=== PATIENT | female | born 1960 | race Caucasian/White ===

== ENCOUNTER 2017-08-12 12:41 | Inpatient (IN) | payer OTHER ==
[2017-08-12 13:57] VITALS: BMI 30.1
--- NOTE | 2017-08-12 15:13 | HP ---
Admission ROS [facility] - [facility] Chief Complaint: i am ghere for rehab from alcohol and marijuana Allergies/Adverse Reactions: Allergies Allergy/AdvReac Type Severity Reaction Status Date / Time cephalexin monohydrate Allergy Severe Vomiting Verified 08/12/17 15:00 [From Keflex] morphine Allergy Rash Verified 08/12/17 15:00 Sulfa (Sulfonamide Allergy Rash Verified 08/12/17 15:00 Antibiotics) History of Present Illness: this 56 years old female with alcohol and cocaine dependence requesting rehab, last treatment [id number] rehab anxiety and depression nicotine dependence Exam Limitations: No Limitations - Ebola screening Have you traveled outside of the country in the last 21 days: No Have you had contact with anyone from an Ebola affected area: No Have you been sick,other than usual withdrawal symptoms: No Do you have a fever: No - Review of Systems Constitutional: No Symptoms Reported EENT: reports: No Symptoms Reported Respiratory: reports: No Symptoms reported Cardiac: reports: No Symptoms Reported GI: reports: No Symptoms Reported : reports: No Symptoms Reported Musculoskeletal: reports: No Symptoms Reported Integumentary: reports: No Symptoms Reported Neuro: reports: No Symptoms reported Endocrine: reports: No Symptoms Reported Hematology: reports: No Symptoms Reported Psychiatric: reports: Judgement Intact, Mood/Affect Appropiate, Orientated x3, Anxious, Depressed Patient History - Patient Medical History Hx Anemia: No Hx Asthma: No Hx Chronic Obstructive Pulmonary Disease (COPD): No Hx Cancer: No Hx Cardiac Disorders: No Hx Congestive Heart Failure: No Hx Hypertension: Yes (HYDROCHLOROTHIAZIDE 12.5 MG) Hx Hypercholesterolemia: Yes (ON SIMVASTATIN 20 MG) Hx Pacemaker: No HX Cerebrovascular Accident: No Hx Seizures: No Hx Dementia: No Hx Diabetes: No Hx Gastrointestinal Disorders: Yes (SOMETIMES AND TAKES OMEPRAZOLE ON/OFF) Hx Liver Disease: No Hx Genitourinary Disorders: No Hx Sexually Transmitted Disorders: No Hx Renal Disease (ESRD): No Hx Thyroid Disease: No Hx Human Immunodeficiency Virus (HIV): No (last 2015 negative) Hx Hepatitis C: No Hx Depression: Yes Hx Suicide Attempt: No Hx Bipolar Disorder: No Hx Schizophrenia: No Other Medical History: no suicidal,no homicidal - Patient Surgical History Hx Neurologic Surgery: Yes (brain aneurysm and pituitary tumor resection ) Hx Cataract Extraction: Yes (Right Eye) Hx Cardiac Surgery: No Hx Lung Surgery: No Hx Breast Surgery: No Hx Breast Biopsy: No Hx Abdominal Surgery: No Hx Appendectomy: No Hx Cholecystectomy: No Hx Genitourinary Surgery: No Hx Section: No Hx Orthopedic Surgery: No Anesthesia Reaction: No - PPD History Previous Implant?: Yes Documented Results: Negative w/proof Date: 09/08/16 Results: 0 mm PPD to be Administered?: No - Reproductive History Patient is a Female of Child Bearing Age (11 -55 yrs old): Yes Last Menstrual Period: 10/18/05 Patient : No - Smoking Cessation Smoking history: Former smoker Have you smoked in the past 12 months: No If you are a former smoker, when did you quit?: 3 years Hx Chewing Tobacco Use: No Initiated information on smoking cessation: Yes 'Breaking Loose' booklet given: 08/12/17 - Substance & Tx. History Hx Alcohol Use: Yes Hx Substance Use: Yes Substance Use Type: Alcohol, Cocaine Family Disease History - Family Disease History Family Disease History: Diabetes: Mother, Heart Disease: Mother, CA: Father ( alcohol) Admission Physical Exam S - Vital Signs Vital Signs: Vital Signs - 24 hr 08/12/17 13:54 Temperature 97 F L Pulse Rate 106 H Respiratory 20 Rate Blood Pressure 149/93 - Physical General Appearance: Yes: Within Normal Limits HEENTM: Yes: Within Normal Limits, Normocephalic, ADAN Respiratory: Yes: Lungs Clear, Normal Breath Sounds, No Respiratory Distress Neck: Yes: Within Normal Limits, Supple, Trachea in good position Breast: Yes: Breast Exam Deferred Cardiology: Yes: Within Normal Limits, Regular Rhythm, Regular Rate, S1, S2 Abdominal: Yes: Within Normal Limits, Normal Bowel Sounds, Non Tender, Flat, Soft Genitourinary: Yes: Within Normal Limits Back: Yes: Within Normal Limits Musculoskeletal: Yes: Within Normal Limits Extremities: Yes: Within Normal Limits Neurological: Yes: ground support agent II-XII NML intact, Alert, Motor Strength 5/5 Integumentary: Yes: Within Normal Limits Lymphatic: Yes: Within Normal Limits - Diagnostic (1) Alcohol dependence Current Visit: No Status: Chronic Qualifiers: Complication of substance-induced condition: uncomplicated (2) Cocaine dependence Current Visit: Yes Status: Acute (3) GERD (gastroesophageal reflux disease) Current Visit: No Status: Chronic Qualifiers: Esophagitis presence: without esophagitis Qualified Code(s): K21.9 - Gastro-esophageal reflux disease without esophagitis (4) HTN (hypertension) Current Visit: No Status: Chronic Qualifiers: Hypertension type: essential hypertension Qualified Code(s): I10 - Essential (primary) hypertension (5) Hypercholesterolemia Current Visit: No Status: Chronic Cleared for Admission [facility] - Detox or Rehab Claeared for Rehab Admission: Yes [facility] Breath Alcohol Content Breath Alcohol Content: 0 Urine Pregancy Test - Result Urine Test Results: Negative- NO Line Present Urine Drug Screen - Results Drug Screen Negative: No Urine Drug Screen Results: FELIX-Cocaine, BZO-Benzodiazepines
[2017-08-12] MEDS ORDERED: MAG HYDROX/AL HYDROX/SIMETH 30 ML UNIT-DOSE CUP PO PRN (15:24)
[2017-08-12] MEDS ORDERED: MENTHOL/PHENOL 1 EACH UD MM PRN (15:24)
[2017-08-12] MEDS ORDERED: guaiFENesin/D-METHORPHAN HB 10 ML UNIT-DOSE CUPS PO PRN (15:24)
[2017-08-12] MEDS ORDERED: LOPERAMIDE HCL 2 MG CAPSULE PO PRN (15:24)
[2017-08-12] MEDS ORDERED: ACETAMINOPHEN 325 MG TABLET (FP) PO PRN (15:24)
[2017-08-12] MEDS ORDERED: P-EPHED 60MG/TRIPROLIDI 2.5MG TABLET PO PRN (15:24)
[2017-08-12] MEDS ORDERED: IBUPROFEN 400 MG TABLET (FP) PO PRN (15:24)
[2017-08-12] MEDS ORDERED: MAGNESIUM HYDROX 2400MG/30ML ORAL SUSPENSION 30 ML CUP PO PRN (15:24)
[2017-08-12] MEDS ORDERED: MAGNESIUM CITRATE 300 ML BOTTLE PO PRN (15:24)
[2017-08-12] MEDS ORDERED: diphenhydrAMINE HCL 50 MG CAPSULE PO PRN (15:24)
[2017-08-12] MEDS ORDERED: hydrOXYzine PAMOATE 50 MG CAPSULE (FP) PO PRN (15:24)
--- NOTE | 2017-08-12 16:05 | HP ---
Admission [facility] Chief Complaint: I am here for rehab form alcohol and cocaine Allergies/Adverse Reactions: Allergies Allergy/AdvReac Type Severity Reaction Status Date / Time cephalexin monohydrate Allergy Severe Vomiting Verified 08/12/17 15:00 [From Keflex] morphine Allergy Rash Verified 08/12/17 15:00 Sulfa (Sulfonamide Allergy Rash Verified 08/12/17 15:00 Antibiotics) History of Present Illness: this 56 years old female with alcohol and cocaine dependence for rehab,last treatment rehab [facility] 09/06/16 to 10/04/16 htn,hypercholesterolemia,gerd anxiety and depression Exam Limitations: No Limitations - Ebola screening Have you traveled outside of the country in the last 21 days: No Have you had contact with anyone from an Ebola affected area: No Have you been sick,other than usual withdrawal symptoms: No Do you have a fever: No - Review of Systems Constitutional: No Symptoms Reported EENT: reports: No Symptoms Reported Respiratory: reports: No Symptoms reported Cardiac: reports: No Symptoms Reported GI: reports: No Symptoms Reported : reports: No Symptoms Reported Musculoskeletal: reports: No Symptoms Reported Integumentary: reports: No Symptoms Reported Neuro: reports: No Symptoms reported Hematology: reports: No Symptoms Reported Psychiatric: reports: No Sypmtoms Reported, Judgement Intact, Mood/Affect Appropiate, Anxious, Depressed Patient History - Patient Medical History Hx Anemia: No Hx Asthma: No Hx Chronic Obstructive Pulmonary Disease (COPD): No Hx Cancer: No Hx Cardiac Disorders: No Hx Congestive Heart Failure: No Hx Hypertension: Yes (HYDROCHLOROTHIAZIDE 12.5 MG) Hx Hypercholesterolemia: Yes (ON SIMVASTATIN 20 MG) Hx Pacemaker: No HX Cerebrovascular Accident: No Hx Seizures: No Hx Dementia: No Hx Diabetes: No Hx Gastrointestinal Disorders: Yes (SOMETIMES AND TAKES OMEPRAZOLE ON/OFF) Hx Liver Disease: No Hx Genitourinary Disorders: No Hx Sexually Transmitted Disorders: No Hx Renal Disease (ESRD): No Hx Thyroid Disease: No Hx Human Immunodeficiency Virus (HIV): No (last 2015 negative) Hx Hepatitis C: No Hx Depression: Yes Hx Suicide Attempt: No Hx Bipolar Disorder: No Hx Schizophrenia: No Other Medical History: no suicidal,no homicidal - Patient Surgical History Hx Neurologic Surgery: Yes (brain aneurysm and pituitary tumor resection ) Hx Cataract Extraction: Yes (Right Eye) Hx Cardiac Surgery: No Hx Lung Surgery: No Hx Breast Surgery: No Hx Breast Biopsy: No Hx Abdominal Surgery: No Hx Appendectomy: No Hx Cholecystectomy: No Hx Genitourinary Surgery: No Hx Section: No Hx Orthopedic Surgery: No Anesthesia Reaction: No - PPD History Previous Implant?: Yes Documented Results: Negative w/proof Implanted On Prior [facility] Admission?: Yes Date: 09/08/16 Results: 0 mm PPD to be Administered?: No - Reproductive History Last Menstrual Period: 10/18/05 Patient : No - Smoking Cessation Smoking history: Former smoker Have you smoked in the past 12 months: No If you are a former smoker, when did you quit?: 3 years Hx Chewing Tobacco Use: No Initiated information on smoking cessation: Yes 'Breaking Loose' booklet given: 08/12/17 - Substance & Tx. History Hx Alcohol Use: Yes Hx Substance Use: Yes Substance Use Type: Alcohol, Cocaine Hx Substance Use Treatment: Yes (2016 [facility] rehab 09/06/16 to 12/04/15) - Substances Abused Alcohol Route: Oral Frequency: 3-6 times per week Amount used: 1 pint vodka Age of first use: 19 Date of Last Use: 08/09/17 Cocaine Route: Inhalation Frequency: 1-2 times per week Amount used: $20-40 Age of first use: 19 Date of Last Use: 08/09/17 Family Disease History - Family Disease History Family Disease History: Diabetes: Mother, Heart Disease: Mother, CA: Father ( alcohol) Admission Physical Exam [facility] - Vital Signs Vital Signs: Vital Signs - 24 hr 08/12/17 13:54 Temperature 97 F L Pulse Rate 106 H Respiratory 20 Rate Blood Pressure 149/93 - Physical General Appearance: Yes: Within Normal Limits, No Apparent Distress HEENTM: Yes: Hearing grossly Normal, Normal ENT Inspection, Pharynx Normal Respiratory: Yes: Within Normal Limits, Lungs Clear, Normal Breath Sounds Neck: Yes: Within Normal Limits Breast: Yes: Breast Exam Deferred Cardiology: Yes: Within Normal Limits, Regular Rhythm, Regular Rate, S1, S2 Abdominal: Yes: Within Normal Limits, Normal Bowel Sounds, Non Tender, Flat, Soft, Increased Bowel Sounds Genitourinary: Yes: Within Normal Limits Back: Yes: Within Normal Limits Musculoskeletal: Yes: Within Normal Limits Extremities: Yes: Within Normal Limits Neurological: Yes: Within Normal Limits, massage therapist II-XII NML intact, Fully Oriented, Motor Strength 5/5 Integumentary: Yes: Within Normal Limits Lymphatic: Yes: Within Normal Limits - Diagnostic (1) Alcohol dependence Current Visit: No Status: Chronic Qualifiers: Complication of substance-induced condition: uncomplicated (2) Cocaine dependence Current Visit: Yes Status: Acute (3) GERD (gastroesophageal reflux disease) Current Visit: No Status: Chronic Qualifiers: Esophagitis presence: without esophagitis Qualified Code(s): K21.9 - Gastro-esophageal reflux disease without esophagitis (4) HTN (hypertension) Current Visit: No Status: Chronic Qualifiers: Hypertension type: essential hypertension Qualified Code(s): I10 - Essential (primary) hypertension (5) Hypercholesterolemia Current Visit: No Status: Chronic (6) Anxiety and depression Current Visit: Yes Status: Acute Cleared for Admission [facility] - Detox or Rehab Claeared for Rehab Admission: Yes [facility] Breath Alcohol Content Breath Alcohol Content: 0 Urine Pregancy Test - Result Urine Test Results: Negative- NO Line Present Urine Drug Screen - Results Drug Screen Negative: No Urine Drug Screen Results: FELIX-Cocaine, BZO-Benzodiazepines Inpatient Rehab Admission - Initial Determination Are CD services needed?: Yes Free of communicable disease: Yes Not in need of hospitalization: Yes - Rehab Admission Criteria Comorbidities: Yes Patient is meeting Inpatient Rehab admission criteria:: Yes
[2017-08-12 17:01] LABS: MCHC 34.7 g/dl (32.0-36.0); MEAN CELL VOLUME 92.2 fl (80-96); MEAN PLT VOLUME 8.2 fl (7.5-11.1); PLATELET COUNT 394 K/MM3 (134-434); RDW 14.1 % (11.6-15.6); WHITE BLOOD COUNT 6.8 K/mm3 (4.0-10.0)
[2017-08-12 17:18] LABS: ALK PHOS 145 U/L (45-117); ANION GAP 11 (8-16); BILIRUBIN,TOTAL 1.2 mg/dL (0.2-1.0); CALCIUM 9.6 mg/dL (8.5-10.1); CO2 26 mmol/L (21-32); CREATININE 0.7 mg/dL (0.55-1.02); GLUCOSE,RANDOM 118 mg/dL (74-106); SGOT/AST 23 U/L (15-37); SGPT/ALT 37 U/L (12-78); TOT PROT 8.1 g/dl (6.4-8.2)
[2017-08-12] MEDS ORDERED: PT OWN MED DRAWER 7, Y5N ONE (20:02)
[2017-08-12 21:20] LABS: URINE APPEARANCE SLCLOUDY; URINE BILIRUBIN NEGATIVE (NEGATIVE); URINE BLOOD 1+ (NEGATIVE); URINE COLOR YELLOW; URINE GLUCOSE (UA) 1+ (NEGATIVE); URINE KETONE 2+ (NEGATIVE); URINE LEUK ESTERASE NEGATIVE (NEGATIVE); URINE NITRITE NEGATIVE (NEGATIVE); URINE UROBILINOGEN NEGATIVE mg/dL (0.2-1.0)
[2017-08-12 21:22] LABS: URINE PROTEIN 2+ (NEGATIVE)
[2017-08-12 21:25] LABS: URINE BACTERIA RARE /hpf (NONE SEEN); URINE MUCUS RARE; URINE RBC 3 /hpf (0-3); URINE WBC 1 /hpf (3-5)
[2017-08-12] MEDS: THIAMINE HCL 100 MG TABLET (FP) PO SCH (21:50)
[2017-08-12] MEDS: traZODone HCL 100 MG TABLET (FP) PO SCH (21:50)
[2017-08-12] MEDS: TRIAMCINOLONE ACET 0.1% OINT 15 GM TUBE TP SCH (21:51)
[2017-08-12] MEDS: MIRTAZAPINE 15 MG TABLET (FP) PO SCH (21:52)
[2017-08-12] MEDS: ATORVASTATIN CA 10 MG TABLET (FP) PO SCH (21:52)
[2017-08-12] MEDS: RANITIDINE HCL 150 MG TABLET (FP) PO SCH (21:52)
[2017-08-13] MEDS: PRENATAL VITAMINS W/ FOLIC ACID TABLET (FP) PO SCH (10:21)
[2017-08-13] MEDS: ASPIRIN COATED 81 MG TABLET.EC PO SCH (10:21)
[2017-08-13] MEDS: CITALOPRAM HYDROBROMIDE 20 MG TABLET (FP) PO SCH (10:21)
[2017-08-13] MEDS: HYDROCHLOROTHIAZIDE 12.5 MG CAPSULE (FP) PO SCH (10:21)
[2017-08-13] MEDS: RANITIDINE HCL 150 MG TABLET (FP) PO SCH ×2 (10:21→21:04)
[2017-08-13] MEDS: TRIAMCINOLONE ACET 0.1% OINT 15 GM TUBE TP SCH ×2 (10:22→21:04)
[2017-08-13 11:22] LABS: HIV 1 & 2 AB NEGATIVE; HIV 1 AGp24 NEGATIVE
[2017-08-13] MEDS: ATORVASTATIN CA 10 MG TABLET (FP) PO SCH (21:04)
[2017-08-13] MEDS: MIRTAZAPINE 15 MG TABLET (FP) PO SCH (21:04)
[2017-08-13] MEDS: THIAMINE HCL 100 MG TABLET (FP) PO SCH (21:04)
[2017-08-13] MEDS: traZODone HCL 100 MG TABLET (FP) PO SCH (21:05)
--- NOTE | 2017-08-13 22:38 | EKG ---
Test Reason : Blood Pressure : / mmHG Vent. Rate : 091 BPM Atrial Rate : 091 BPM P-R Int : 138 ms QRS Dur : 088 ms QT Int : 386 ms P-R-T Axes : 057 009 011 degrees QTc Int : 474 ms NORMAL SINUS RHYTHM MINIMAL VOLTAGE CRITERIA FOR LVH, MAY BE NORMAL VARIANT NONSPECIFIC ST AND T WAVE ABNORMALITY ABNORMAL ECG NO PREVIOUS ECGS AVAILABLE REPEAT EKG IF CLINICALLY INDICATED Confirmed by SALEEM BOCANEGRA MD ([id number]) on 08/13/2017 10:37:43 PM Referred By: Confirmed By:SALEEM BOCANEGRA MD
[2017-08-14] MEDS ORDERED: ONDANSETRON *ODT* 4 MG TABLET SL PRN (09:11)
[2017-08-14] MEDS: CITALOPRAM HYDROBROMIDE 20 MG TABLET (FP) PO SCH (09:33)
[2017-08-14] MEDS: PRENATAL VITAMINS W/ FOLIC ACID TABLET (FP) PO SCH (09:33)
[2017-08-14] MEDS: ASPIRIN COATED 81 MG TABLET.EC PO SCH (09:33)
[2017-08-14] MEDS: HYDROCHLOROTHIAZIDE 12.5 MG CAPSULE (FP) PO SCH (09:36)
[2017-08-14] MEDS: RANITIDINE HCL 150 MG TABLET (FP) PO SCH ×2 (09:36→21:43)
[2017-08-14] MEDS: TRIAMCINOLONE ACET 0.1% OINT 15 GM TUBE TP SCH ×2 (10:39→21:44)
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
[2017-08-14] MEDS: THIAMINE HCL 100 MG TABLET (FP) PO SCH (21:43)
[2017-08-14] MEDS: traZODone HCL 100 MG TABLET (FP) PO SCH (21:43)
[2017-08-14] MEDS: ATORVASTATIN CA 10 MG TABLET (FP) PO SCH (21:43)
[2017-08-14] MEDS: MIRTAZAPINE 15 MG TABLET (FP) PO SCH (21:43)
[2017-08-15] MEDS ORDERED: PT OWN MED DRAWER 7, Y5N ONE ×2 (08:54→11:32)
[2017-08-15] MEDS: TRIAMCINOLONE ACET 0.1% OINT 15 GM TUBE TP SCH ×2 (10:22→21:52)
[2017-08-15] MEDS: ASPIRIN COATED 81 MG TABLET.EC PO SCH (10:23)
[2017-08-15] MEDS: PRENATAL VITAMINS W/ FOLIC ACID TABLET (FP) PO SCH (10:23)
[2017-08-15] MEDS: CITALOPRAM HYDROBROMIDE 20 MG TABLET (FP) PO SCH (10:23)
[2017-08-15] MEDS: RANITIDINE HCL 150 MG TABLET (FP) PO SCH ×2 (10:23→21:51)
[2017-08-15] MEDS: HYDROCHLOROTHIAZIDE 12.5 MG CAPSULE (FP) PO SCH (10:23)
[2017-08-15] MEDS: THIAMINE HCL 100 MG TABLET (FP) PO SCH (21:51)
[2017-08-15] MEDS: traZODone HCL 100 MG TABLET (FP) PO SCH (21:51)
[2017-08-15] MEDS: ATORVASTATIN CA 10 MG TABLET (FP) PO SCH (21:52)
[2017-08-15] MEDS: MIRTAZAPINE 15 MG TABLET (FP) PO SCH (21:52)
[2017-08-16] MEDS ORDERED: PT OWN MED DRAWER 7, Y5N ONE (08:49)
[2017-08-16] MEDS: TRIAMCINOLONE ACET 0.1% OINT 15 GM TUBE TP SCH ×2 (10:20→21:52)
[2017-08-16] MEDS: RANITIDINE HCL 150 MG TABLET (FP) PO SCH ×2 (10:20→21:51)
[2017-08-16] MEDS: HYDROCHLOROTHIAZIDE 12.5 MG CAPSULE (FP) PO SCH (10:20)
[2017-08-16] MEDS: PRENATAL VITAMINS W/ FOLIC ACID TABLET (FP) PO SCH (10:20)
[2017-08-16] MEDS: ASPIRIN COATED 81 MG TABLET.EC PO SCH (10:21)
[2017-08-16] MEDS: CITALOPRAM HYDROBROMIDE 20 MG TABLET (FP) PO SCH (10:21)
[2017-08-16] MEDS: ATORVASTATIN CA 10 MG TABLET (FP) PO SCH (21:51)
[2017-08-16] MEDS: THIAMINE HCL 100 MG TABLET (FP) PO SCH (21:51)
[2017-08-16] MEDS: MIRTAZAPINE 15 MG TABLET (FP) PO SCH (21:51)
[2017-08-16] MEDS: traZODone HCL 100 MG TABLET (FP) PO SCH (21:51)
[2017-08-17] MEDS: TRIAMCINOLONE ACET 0.1% OINT 15 GM TUBE TP SCH ×2 (10:03→22:01)
[2017-08-17] MEDS: CITALOPRAM HYDROBROMIDE 20 MG TABLET (FP) PO SCH (10:03)
[2017-08-17] MEDS: HYDROCHLOROTHIAZIDE 12.5 MG CAPSULE (FP) PO SCH (10:04)
[2017-08-17] MEDS: ASPIRIN COATED 81 MG TABLET.EC PO SCH (10:04)
[2017-08-17] MEDS: RANITIDINE HCL 150 MG TABLET (FP) PO SCH ×2 (10:04→21:49)
[2017-08-17] MEDS: PRENATAL VITAMINS W/ FOLIC ACID TABLET (FP) PO SCH (10:05)
[2017-08-17] MEDS: ATORVASTATIN CA 10 MG TABLET (FP) PO SCH (21:48)
[2017-08-17] MEDS: traZODone HCL 100 MG TABLET (FP) PO SCH (21:49)
[2017-08-17] MEDS: MIRTAZAPINE 15 MG TABLET (FP) PO SCH (21:49)
[2017-08-17] MEDS: THIAMINE HCL 100 MG TABLET (FP) PO SCH (21:49)
[2017-08-18] MEDS: CITALOPRAM HYDROBROMIDE 20 MG TABLET (FP) PO SCH (10:14)
[2017-08-18] MEDS: TRIAMCINOLONE ACET 0.1% OINT 15 GM TUBE TP SCH ×2 (10:14→22:02)
[2017-08-18] MEDS: ASPIRIN COATED 81 MG TABLET.EC PO SCH (10:15)
[2017-08-18] MEDS: RANITIDINE HCL 150 MG TABLET (FP) PO SCH ×2 (10:15→22:01)
[2017-08-18] MEDS: HYDROCHLOROTHIAZIDE 12.5 MG CAPSULE (FP) PO SCH (10:15)
[2017-08-18] MEDS: PRENATAL VITAMINS W/ FOLIC ACID TABLET (FP) PO SCH (10:15)
[2017-08-18] MEDS: MIRTAZAPINE 15 MG TABLET (FP) PO SCH (22:01)
[2017-08-18] MEDS: THIAMINE HCL 100 MG TABLET (FP) PO SCH (22:01)
[2017-08-18] MEDS: traZODone HCL 100 MG TABLET (FP) PO SCH (22:01)
[2017-08-18] MEDS: ATORVASTATIN CA 10 MG TABLET (FP) PO SCH (22:02)
[2017-08-19] MEDS: RANITIDINE HCL 150 MG TABLET (FP) PO SCH ×2 (10:28→22:07)
[2017-08-19] MEDS: PRENATAL VITAMINS W/ FOLIC ACID TABLET (FP) PO SCH (10:28)
[2017-08-19] MEDS: CITALOPRAM HYDROBROMIDE 20 MG TABLET (FP) PO SCH (10:28)
[2017-08-19] MEDS: HYDROCHLOROTHIAZIDE 12.5 MG CAPSULE (FP) PO SCH (10:28)
[2017-08-19] MEDS: ASPIRIN COATED 81 MG TABLET.EC PO SCH (10:28)
[2017-08-19] MEDS: TRIAMCINOLONE ACET 0.1% OINT 15 GM TUBE TP SCH ×2 (10:50→22:08)
[2017-08-19] MEDS ORDERED: PT OWN MED DRAWER 7, Y5N ONE (10:55)
[2017-08-19] MEDS: THIAMINE HCL 100 MG TABLET (FP) PO SCH (22:06)
[2017-08-19] MEDS: MIRTAZAPINE 15 MG TABLET (FP) PO SCH (22:07)
[2017-08-19] MEDS: traZODone HCL 100 MG TABLET (FP) PO SCH (22:07)
[2017-08-19] MEDS: ATORVASTATIN CA 10 MG TABLET (FP) PO SCH (22:09)
[2017-08-20] MEDS ORDERED: PT OWN MED DRAWER 7, Y5N ONE ×2 (08:56→22:16)
[2017-08-20] MEDS: PRENATAL VITAMINS W/ FOLIC ACID TABLET (FP) PO SCH (10:26)
[2017-08-20] MEDS: HYDROCHLOROTHIAZIDE 12.5 MG CAPSULE (FP) PO SCH (10:26)
[2017-08-20] MEDS: CITALOPRAM HYDROBROMIDE 20 MG TABLET (FP) PO SCH (10:26)
[2017-08-20] MEDS: RANITIDINE HCL 150 MG TABLET (FP) PO SCH ×2 (10:26→22:14)
[2017-08-20] MEDS: ASPIRIN COATED 81 MG TABLET.EC PO SCH (10:26)
[2017-08-20] MEDS: TRIAMCINOLONE ACET 0.1% OINT 15 GM TUBE TP SCH ×2 (10:27→22:16)
[2017-08-20] MEDS: THIAMINE HCL 100 MG TABLET (FP) PO SCH (22:14)
[2017-08-20] MEDS: ATORVASTATIN CA 10 MG TABLET (FP) PO SCH (22:14)
[2017-08-20] MEDS: traZODone HCL 100 MG TABLET (FP) PO SCH (22:14)
[2017-08-20] MEDS: MIRTAZAPINE 15 MG TABLET (FP) PO SCH (22:15)
[2017-08-21] MEDS: HYDROCHLOROTHIAZIDE 12.5 MG CAPSULE (FP) PO SCH (10:48)
[2017-08-21] MEDS: RANITIDINE HCL 150 MG TABLET (FP) PO SCH ×2 (10:49→22:01)
[2017-08-21] MEDS: PRENATAL VITAMINS W/ FOLIC ACID TABLET (FP) PO SCH (10:49)
[2017-08-21] MEDS: CITALOPRAM HYDROBROMIDE 20 MG TABLET (FP) PO SCH (10:49)
[2017-08-21] MEDS: ASPIRIN COATED 81 MG TABLET.EC PO SCH (10:49)
[2017-08-21] MEDS: TRIAMCINOLONE ACET 0.1% OINT 15 GM TUBE TP SCH ×2 (10:50→22:01)
--- NOTE | 2017-08-21 17:37 | PN ---
S Progress Note Note: pt. has an abscess on right inner thigh, the area is red,warm and tender Vital Signs - 8 hr 08/21/17 10:00 Pulse Rate 90 Respiratory 18 Rate Blood Pressure 102/68 P : Levaquin 500mg/d & Bacitracin oin't qid
[2017-08-21] MEDS: LEVOFLOXACIN 500 MG TABLET (FP) PO SCH (17:47)
[2017-08-21] MEDS: BACITRACIN 0.9 GM PACKET TP SCH ×2 (17:48→22:00)
[2017-08-21] MEDS: THIAMINE HCL 100 MG TABLET (FP) PO SCH (22:01)
[2017-08-21] MEDS: MIRTAZAPINE 15 MG TABLET (FP) PO SCH (22:01)
[2017-08-21] MEDS: traZODone HCL 100 MG TABLET (FP) PO SCH (22:01)
[2017-08-21] MEDS: ATORVASTATIN CA 10 MG TABLET (FP) PO SCH (22:01)
[2017-08-22] MEDS ORDERED: PT OWN MED DRAWER 7, Y5N ONE (09:27)
[2017-08-22] MEDS: TRIAMCINOLONE ACET 0.1% OINT 15 GM TUBE TP SCH ×2 (10:48→21:48)
[2017-08-22] MEDS: BACITRACIN 0.9 GM PACKET TP SCH ×4 (10:49→21:48)
[2017-08-22] MEDS: LEVOFLOXACIN 500 MG TABLET (FP) PO SCH (10:49)
[2017-08-22] MEDS: HYDROCHLOROTHIAZIDE 12.5 MG CAPSULE (FP) PO SCH (10:49)
[2017-08-22] MEDS: PRENATAL VITAMINS W/ FOLIC ACID TABLET (FP) PO SCH (10:49)
[2017-08-22] MEDS: CITALOPRAM HYDROBROMIDE 20 MG TABLET (FP) PO SCH (10:49)
[2017-08-22] MEDS: ASPIRIN COATED 81 MG TABLET.EC PO SCH (10:50)
[2017-08-22] MEDS: RANITIDINE HCL 150 MG TABLET (FP) PO SCH ×2 (10:50→21:49)
[2017-08-22] MEDS: COLLOIDAL OATMEAL 1 BAR EACH TP PRN (15:35)
[2017-08-22] MEDS: MIRTAZAPINE 15 MG TABLET (FP) PO SCH (21:48)
[2017-08-22] MEDS: ATORVASTATIN CA 10 MG TABLET (FP) PO SCH (21:48)
[2017-08-22] MEDS: traZODone HCL 100 MG TABLET (FP) PO SCH (21:48)
[2017-08-22] MEDS: THIAMINE HCL 100 MG TABLET (FP) PO SCH (21:49)
[2017-08-23] MEDS ORDERED: PT OWN MED DRAWER 7, Y5N ONE ×2 (08:50→19:50)
[2017-08-23] MEDS: CITALOPRAM HYDROBROMIDE 20 MG TABLET (FP) PO SCH (10:51)
[2017-08-23] MEDS: BACITRACIN 0.9 GM PACKET TP SCH ×4 (10:51→21:45)
[2017-08-23] MEDS: RANITIDINE HCL 150 MG TABLET (FP) PO SCH ×2 (10:51→21:44)
[2017-08-23] MEDS: ASPIRIN COATED 81 MG TABLET.EC PO SCH (10:51)
[2017-08-23] MEDS: PRENATAL VITAMINS W/ FOLIC ACID TABLET (FP) PO SCH (10:51)
[2017-08-23] MEDS: LEVOFLOXACIN 500 MG TABLET (FP) PO SCH (10:51)
[2017-08-23] MEDS: TRIAMCINOLONE ACET 0.1% OINT 15 GM TUBE TP SCH ×2 (10:51→21:45)
[2017-08-23] MEDS: HYDROCHLOROTHIAZIDE 12.5 MG CAPSULE (FP) PO SCH (10:51)
[2017-08-23] MEDS: ATORVASTATIN CA 10 MG TABLET (FP) PO SCH (21:44)
[2017-08-23] MEDS: traZODone HCL 100 MG TABLET (FP) PO SCH (21:44)
[2017-08-23] MEDS: MIRTAZAPINE 15 MG TABLET (FP) PO SCH (21:44)
[2017-08-23] MEDS: THIAMINE HCL 100 MG TABLET (FP) PO SCH (21:53)
[2017-08-24] MEDS ORDERED: PT OWN MED DRAWER 7, Y5N ONE (08:57)
[2017-08-24] MEDS: CITALOPRAM HYDROBROMIDE 20 MG TABLET (FP) PO SCH (10:20)
[2017-08-24] MEDS: HYDROCHLOROTHIAZIDE 12.5 MG CAPSULE (FP) PO SCH (10:20)
[2017-08-24] MEDS: ASPIRIN COATED 81 MG TABLET.EC PO SCH (10:20)
[2017-08-24] MEDS: PRENATAL VITAMINS W/ FOLIC ACID TABLET (FP) PO SCH (10:20)
[2017-08-24] MEDS: BACITRACIN 0.9 GM PACKET TP SCH ×4 (10:22→21:39)
[2017-08-24] MEDS: LEVOFLOXACIN 500 MG TABLET (FP) PO SCH (10:22)
[2017-08-24] MEDS: TRIAMCINOLONE ACET 0.1% OINT 15 GM TUBE TP SCH ×2 (10:22→21:39)
[2017-08-24] MEDS: RANITIDINE HCL 150 MG TABLET (FP) PO SCH ×2 (11:56→21:39)
[2017-08-24] MEDS: traZODone HCL 100 MG TABLET (FP) PO SCH (21:38)
[2017-08-24] MEDS: ATORVASTATIN CA 10 MG TABLET (FP) PO SCH (21:39)
[2017-08-24] MEDS: THIAMINE HCL 100 MG TABLET (FP) PO SCH (21:39)
[2017-08-24] MEDS: MIRTAZAPINE 15 MG TABLET (FP) PO SCH (21:39)
[2017-08-25] MEDS ORDERED: PT OWN MED DRAWER 7, Y5N ONE (08:59)
[2017-08-25] MEDS: CITALOPRAM HYDROBROMIDE 20 MG TABLET (FP) PO SCH (10:40)
[2017-08-25] MEDS: ASPIRIN COATED 81 MG TABLET.EC PO SCH (10:40)
[2017-08-25] MEDS: HYDROCHLOROTHIAZIDE 12.5 MG CAPSULE (FP) PO SCH (10:40)
[2017-08-25] MEDS: LEVOFLOXACIN 500 MG TABLET (FP) PO SCH (10:40)
[2017-08-25] MEDS: TRIAMCINOLONE ACET 0.1% OINT 15 GM TUBE TP SCH ×2 (10:40→21:45)
[2017-08-25] MEDS: PRENATAL VITAMINS W/ FOLIC ACID TABLET (FP) PO SCH (10:40)
[2017-08-25] MEDS: RANITIDINE HCL 150 MG TABLET (FP) PO SCH ×2 (10:40→21:45)
[2017-08-25] MEDS: BACITRACIN 0.9 GM PACKET TP SCH ×4 (10:40→21:45)
[2017-08-25] MEDS: traZODone HCL 100 MG TABLET (FP) PO SCH (21:45)
[2017-08-25] MEDS: MIRTAZAPINE 15 MG TABLET (FP) PO SCH (21:45)
[2017-08-25] MEDS: ATORVASTATIN CA 10 MG TABLET (FP) PO SCH (21:45)
[2017-08-25] MEDS: THIAMINE HCL 100 MG TABLET (FP) PO SCH (21:45)
[2017-08-26] MEDS ORDERED: PT OWN MED DRAWER 7, Y5N ONE (08:47)
[2017-08-26] MEDS: CITALOPRAM HYDROBROMIDE 20 MG TABLET (FP) PO SCH (10:40)
[2017-08-26] MEDS: LEVOFLOXACIN 500 MG TABLET (FP) PO SCH (10:40)
[2017-08-26] MEDS: RANITIDINE HCL 150 MG TABLET (FP) PO SCH ×2 (10:40→22:08)
[2017-08-26] MEDS: HYDROCHLOROTHIAZIDE 12.5 MG CAPSULE (FP) PO SCH (10:40)
[2017-08-26] MEDS: ASPIRIN COATED 81 MG TABLET.EC PO SCH (10:40)
[2017-08-26] MEDS: PRENATAL VITAMINS W/ FOLIC ACID TABLET (FP) PO SCH (10:40)
[2017-08-26] MEDS: TRIAMCINOLONE ACET 0.1% OINT 15 GM TUBE TP SCH ×2 (10:41→22:32)
[2017-08-26] MEDS: BACITRACIN 0.9 GM PACKET TP SCH ×4 (10:41→22:32)
[2017-08-26] MEDS: traZODone HCL 100 MG TABLET (FP) PO SCH (22:07)
[2017-08-26] MEDS: MIRTAZAPINE 15 MG TABLET (FP) PO SCH (22:07)
[2017-08-26] MEDS: ATORVASTATIN CA 10 MG TABLET (FP) PO SCH (22:08)
[2017-08-26] MEDS: THIAMINE HCL 100 MG TABLET (FP) PO SCH (22:08)
[2017-08-27] MEDS: TRIAMCINOLONE ACET 0.1% OINT 15 GM TUBE TP SCH ×2 (10:33→21:47)
[2017-08-27] MEDS: BACITRACIN 0.9 GM PACKET TP SCH ×4 (10:34→21:48)
[2017-08-27] MEDS: CITALOPRAM HYDROBROMIDE 20 MG TABLET (FP) PO SCH (10:34)
[2017-08-27] MEDS: HYDROCHLOROTHIAZIDE 12.5 MG CAPSULE (FP) PO SCH (10:34)
[2017-08-27] MEDS: ASPIRIN COATED 81 MG TABLET.EC PO SCH (10:34)
[2017-08-27] MEDS: RANITIDINE HCL 150 MG TABLET (FP) PO SCH ×2 (10:35→21:49)
[2017-08-27] MEDS: LEVOFLOXACIN 500 MG TABLET (FP) PO SCH (10:35)
[2017-08-27] MEDS: PRENATAL VITAMINS W/ FOLIC ACID TABLET (FP) PO SCH (10:35)
[2017-08-27] MEDS: traZODone HCL 100 MG TABLET (FP) PO SCH (21:48)
[2017-08-27] MEDS: MIRTAZAPINE 15 MG TABLET (FP) PO SCH (21:48)
[2017-08-27] MEDS: diphenhydrAMINE HCL 50 MG CAPSULE PO SCH (21:49)
[2017-08-27] MEDS: THIAMINE HCL 100 MG TABLET (FP) PO SCH (21:49)
[2017-08-27] MEDS: ATORVASTATIN CA 10 MG TABLET (FP) PO SCH (21:49)
[2017-08-28] MEDS ORDERED: PT OWN MED DRAWER 7, Y5N ONE (09:16)
[2017-08-28] MEDS: LEVOFLOXACIN 500 MG TABLET (FP) PO SCH (10:44)
[2017-08-28] MEDS: BACITRACIN 0.9 GM PACKET TP SCH ×4 (10:45→21:52)
[2017-08-28] MEDS: HYDROCHLOROTHIAZIDE 12.5 MG CAPSULE (FP) PO SCH (10:45)
[2017-08-28] MEDS: RANITIDINE HCL 150 MG TABLET (FP) PO SCH ×2 (10:45→21:51)
[2017-08-28] MEDS: CITALOPRAM HYDROBROMIDE 20 MG TABLET (FP) PO SCH (10:45)
[2017-08-28] MEDS: ASPIRIN COATED 81 MG TABLET.EC PO SCH (10:45)
[2017-08-28] MEDS: PRENATAL VITAMINS W/ FOLIC ACID TABLET (FP) PO SCH (10:45)
[2017-08-28] MEDS: TRIAMCINOLONE ACET 0.1% OINT 15 GM TUBE TP SCH ×2 (10:46→21:52)
[2017-08-28] MEDS: diphenhydrAMINE HCL 50 MG CAPSULE PO SCH (21:51)
[2017-08-28] MEDS: MIRTAZAPINE 15 MG TABLET (FP) PO SCH (21:51)
[2017-08-28] MEDS: THIAMINE HCL 100 MG TABLET (FP) PO SCH (21:51)
[2017-08-28] MEDS: ATORVASTATIN CA 10 MG TABLET (FP) PO SCH (21:52)
[2017-08-28] MEDS: traZODone HCL 100 MG TABLET (FP) PO SCH (21:52)
[2017-08-29] MEDS: PRENATAL VITAMINS W/ FOLIC ACID TABLET (FP) PO SCH (10:20)
[2017-08-29] MEDS: TRIAMCINOLONE ACET 0.1% OINT 15 GM TUBE TP SCH ×2 (10:20→21:34)
[2017-08-29] MEDS: BACITRACIN 0.9 GM PACKET TP SCH ×4 (10:20→21:34)
[2017-08-29] MEDS: RANITIDINE HCL 150 MG TABLET (FP) PO SCH ×2 (10:20→21:33)
[2017-08-29] MEDS: CITALOPRAM HYDROBROMIDE 20 MG TABLET (FP) PO SCH (10:21)
[2017-08-29] MEDS: HYDROCHLOROTHIAZIDE 12.5 MG CAPSULE (FP) PO SCH (10:21)
[2017-08-29] MEDS: LEVOFLOXACIN 500 MG TABLET (FP) PO SCH (10:21)
[2017-08-29] MEDS: ASPIRIN COATED 81 MG TABLET.EC PO SCH (10:21)
[2017-08-29] MEDS: ATORVASTATIN CA 10 MG TABLET (FP) PO SCH (21:33)
[2017-08-29] MEDS: THIAMINE HCL 100 MG TABLET (FP) PO SCH (21:33)
[2017-08-29] MEDS: traZODone HCL 100 MG TABLET (FP) PO SCH (21:33)
[2017-08-29] MEDS: diphenhydrAMINE HCL 50 MG CAPSULE PO SCH (21:34)
[2017-08-29] MEDS: MIRTAZAPINE 15 MG TABLET (FP) PO SCH (21:35)
[2017-08-29] MEDS ORDERED: PT OWN MED DRAWER 7, Y5N ONE (23:47)
[2017-08-30] MEDS: CITALOPRAM HYDROBROMIDE 20 MG TABLET (FP) PO SCH (10:51)
[2017-08-30] MEDS: HYDROCHLOROTHIAZIDE 12.5 MG CAPSULE (FP) PO SCH (10:51)
[2017-08-30] MEDS: RANITIDINE HCL 150 MG TABLET (FP) PO SCH ×2 (10:51→21:45)
[2017-08-30] MEDS: ASPIRIN COATED 81 MG TABLET.EC PO SCH (10:51)
[2017-08-30] MEDS: PRENATAL VITAMINS W/ FOLIC ACID TABLET (FP) PO SCH (10:51)
[2017-08-30] MEDS: LEVOFLOXACIN 500 MG TABLET (FP) PO SCH (10:51)
[2017-08-30] MEDS: BACITRACIN 0.9 GM PACKET TP SCH ×4 (10:52→21:47)
[2017-08-30] MEDS: TRIAMCINOLONE ACET 0.1% OINT 15 GM TUBE TP SCH ×2 (10:52→21:47)
[2017-08-30] MEDS: ATORVASTATIN CA 10 MG TABLET (FP) PO SCH (21:45)
[2017-08-30] MEDS: traZODone HCL 100 MG TABLET (FP) PO SCH (21:45)
[2017-08-30] MEDS: MIRTAZAPINE 15 MG TABLET (FP) PO SCH (21:45)
[2017-08-30] MEDS: THIAMINE HCL 100 MG TABLET (FP) PO SCH (21:45)
[2017-08-30] MEDS: diphenhydrAMINE HCL 50 MG CAPSULE PO SCH (21:46)
[2017-08-31] MEDS: BACITRACIN 0.9 GM PACKET TP SCH ×4 (10:06→21:48)
[2017-08-31] MEDS: CITALOPRAM HYDROBROMIDE 20 MG TABLET (FP) PO SCH (10:06)
[2017-08-31] MEDS: TRIAMCINOLONE ACET 0.1% OINT 15 GM TUBE TP SCH ×2 (10:06→21:48)
[2017-08-31] MEDS: RANITIDINE HCL 150 MG TABLET (FP) PO SCH ×2 (10:07→21:47)
[2017-08-31] MEDS: LEVOFLOXACIN 500 MG TABLET (FP) PO SCH (10:07)
[2017-08-31] MEDS: ASPIRIN COATED 81 MG TABLET.EC PO SCH (10:07)
[2017-08-31] MEDS: PRENATAL VITAMINS W/ FOLIC ACID TABLET (FP) PO SCH (10:07)
[2017-08-31] MEDS: HYDROCHLOROTHIAZIDE 12.5 MG CAPSULE (FP) PO SCH (10:07)
[2017-08-31] MEDS: MIRTAZAPINE 15 MG TABLET (FP) PO SCH (21:47)
[2017-08-31] MEDS: diphenhydrAMINE HCL 50 MG CAPSULE PO SCH (21:47)
[2017-08-31] MEDS: traZODone HCL 100 MG TABLET (FP) PO SCH (21:48)
[2017-08-31] MEDS: ATORVASTATIN CA 10 MG TABLET (FP) PO SCH (21:48)
[2017-08-31] MEDS: THIAMINE HCL 100 MG TABLET (FP) PO SCH (21:48)
[2017-09-01] MEDS: PRENATAL VITAMINS W/ FOLIC ACID TABLET (FP) PO SCH (10:29)
[2017-09-01] MEDS: BACITRACIN 0.9 GM PACKET TP SCH ×4 (10:29→21:41)
[2017-09-01] MEDS: CITALOPRAM HYDROBROMIDE 20 MG TABLET (FP) PO SCH (10:29)
[2017-09-01] MEDS: TRIAMCINOLONE ACET 0.1% OINT 15 GM TUBE TP SCH ×2 (10:29→21:41)
[2017-09-01] MEDS: LEVOFLOXACIN 500 MG TABLET (FP) PO SCH (10:30)
[2017-09-01] MEDS: RANITIDINE HCL 150 MG TABLET (FP) PO SCH ×2 (10:30→21:42)
[2017-09-01] MEDS: HYDROCHLOROTHIAZIDE 12.5 MG CAPSULE (FP) PO SCH (10:30)
[2017-09-01] MEDS: ASPIRIN COATED 81 MG TABLET.EC PO SCH (10:30)
[2017-09-01] MEDS: COLLOIDAL OATMEAL 1 BAR EACH TP PRN (17:30)
[2017-09-01] MEDS ORDERED: diphenhydrAMINE HCL 25 MG CAPSULE (FP) PO ONE (19:27)
[2017-09-01] MEDS ORDERED: PT OWN MED DRAWER 7, Y5N ONE (19:28)
[2017-09-01] MEDS: traZODone HCL 100 MG TABLET (FP) PO SCH (21:41)
[2017-09-01] MEDS: MIRTAZAPINE 15 MG TABLET (FP) PO SCH (21:41)
[2017-09-01] MEDS: diphenhydrAMINE HCL 50 MG CAPSULE PO SCH (21:41)
[2017-09-01] MEDS: ATORVASTATIN CA 10 MG TABLET (FP) PO SCH (21:41)
[2017-09-01] MEDS: THIAMINE HCL 100 MG TABLET (FP) PO SCH (21:42)
[2017-09-02] MEDS: TRIAMCINOLONE ACET 0.1% OINT 15 GM TUBE TP SCH ×2 (10:55→21:45)
[2017-09-02] MEDS: RANITIDINE HCL 150 MG TABLET (FP) PO SCH ×2 (10:56→21:44)
[2017-09-02] MEDS: CITALOPRAM HYDROBROMIDE 20 MG TABLET (FP) PO SCH (10:56)
[2017-09-02] MEDS: ASPIRIN COATED 81 MG TABLET.EC PO SCH (10:56)
[2017-09-02] MEDS: LEVOFLOXACIN 500 MG TABLET (FP) PO SCH (10:56)
[2017-09-02] MEDS: PRENATAL VITAMINS W/ FOLIC ACID TABLET (FP) PO SCH (10:56)
[2017-09-02] MEDS: HYDROCHLOROTHIAZIDE 12.5 MG CAPSULE (FP) PO SCH (10:56)
[2017-09-02] MEDS: BACITRACIN 0.9 GM PACKET TP SCH ×4 (11:06→21:45)
[2017-09-02] MEDS: MIRTAZAPINE 15 MG TABLET (FP) PO SCH (21:44)
[2017-09-02] MEDS: traZODone HCL 100 MG TABLET (FP) PO SCH (21:44)
[2017-09-02] MEDS: ATORVASTATIN CA 10 MG TABLET (FP) PO SCH (21:44)
[2017-09-02] MEDS: THIAMINE HCL 100 MG TABLET (FP) PO SCH (21:45)
[2017-09-02] MEDS: diphenhydrAMINE HCL 50 MG CAPSULE PO SCH (21:45)
[2017-09-03] MEDS ORDERED: PT OWN MED DRAWER 7, Y5N ONE (08:46)
[2017-09-03] MEDS: TRIAMCINOLONE ACET 0.1% OINT 15 GM TUBE TP SCH ×2 (10:48→21:39)
[2017-09-03] MEDS: HYDROCHLOROTHIAZIDE 12.5 MG CAPSULE (FP) PO SCH (10:48)
[2017-09-03] MEDS: CITALOPRAM HYDROBROMIDE 20 MG TABLET (FP) PO SCH (10:48)
[2017-09-03] MEDS: ASPIRIN COATED 81 MG TABLET.EC PO SCH (10:48)
[2017-09-03] MEDS: RANITIDINE HCL 150 MG TABLET (FP) PO SCH ×2 (10:48→21:38)
[2017-09-03] MEDS: LEVOFLOXACIN 500 MG TABLET (FP) PO SCH (10:48)
[2017-09-03] MEDS: PRENATAL VITAMINS W/ FOLIC ACID TABLET (FP) PO SCH (10:48)
[2017-09-03] MEDS: BACITRACIN 0.9 GM PACKET TP SCH ×4 (10:48→21:39)
[2017-09-03] MEDS: ATORVASTATIN CA 10 MG TABLET (FP) PO SCH (21:38)
[2017-09-03] MEDS: traZODone HCL 100 MG TABLET (FP) PO SCH (21:38)
[2017-09-03] MEDS: diphenhydrAMINE HCL 50 MG CAPSULE PO SCH (21:38)
[2017-09-03] MEDS: THIAMINE HCL 100 MG TABLET (FP) PO SCH (21:38)
[2017-09-03] MEDS: MIRTAZAPINE 15 MG TABLET (FP) PO SCH (21:38)
[2017-09-04] MEDS: CITALOPRAM HYDROBROMIDE 20 MG TABLET (FP) PO SCH (10:48)
[2017-09-04] MEDS: TRIAMCINOLONE ACET 0.1% OINT 15 GM TUBE TP SCH ×2 (10:48→21:51)
[2017-09-04] MEDS: RANITIDINE HCL 150 MG TABLET (FP) PO SCH ×2 (10:48→21:49)
[2017-09-04] MEDS: BACITRACIN 0.9 GM PACKET TP SCH ×4 (10:48→21:51)
[2017-09-04] MEDS: ASPIRIN COATED 81 MG TABLET.EC PO SCH (10:48)
[2017-09-04] MEDS: PRENATAL VITAMINS W/ FOLIC ACID TABLET (FP) PO SCH (10:48)
[2017-09-04] MEDS: HYDROCHLOROTHIAZIDE 12.5 MG CAPSULE (FP) PO SCH (10:49)
[2017-09-04] MEDS: traZODone HCL 100 MG TABLET (FP) PO SCH (21:49)
[2017-09-04] MEDS: THIAMINE HCL 100 MG TABLET (FP) PO SCH (21:49)
[2017-09-04] MEDS: MIRTAZAPINE 15 MG TABLET (FP) PO SCH (21:49)
[2017-09-04] MEDS: ATORVASTATIN CA 10 MG TABLET (FP) PO SCH (21:49)
[2017-09-04] MEDS: diphenhydrAMINE HCL 50 MG CAPSULE PO SCH (21:50)
[2017-09-05] MEDS: ASPIRIN COATED 81 MG TABLET.EC PO SCH (10:34)
[2017-09-05] MEDS: BACITRACIN 0.9 GM PACKET TP SCH ×4 (10:34→21:52)
[2017-09-05] MEDS: PRENATAL VITAMINS W/ FOLIC ACID TABLET (FP) PO SCH (10:34)
[2017-09-05] MEDS: RANITIDINE HCL 150 MG TABLET (FP) PO SCH ×2 (10:34→21:51)
[2017-09-05] MEDS: CITALOPRAM HYDROBROMIDE 20 MG TABLET (FP) PO SCH (10:34)
[2017-09-05] MEDS: TRIAMCINOLONE ACET 0.1% OINT 15 GM TUBE TP SCH ×2 (10:35→21:52)
[2017-09-05] MEDS: THIAMINE HCL 100 MG TABLET (FP) PO SCH (21:50)
[2017-09-05] MEDS: traZODone HCL 100 MG TABLET (FP) PO SCH (21:51)
[2017-09-05] MEDS: ATORVASTATIN CA 10 MG TABLET (FP) PO SCH (21:51)
[2017-09-05] MEDS: diphenhydrAMINE HCL 50 MG CAPSULE PO SCH (21:51)
[2017-09-05] MEDS: MIRTAZAPINE 15 MG TABLET (FP) PO SCH (21:51)
[2017-09-06] MEDS: TRIAMCINOLONE ACET 0.1% OINT 15 GM TUBE TP SCH ×2 (10:44→21:59)
[2017-09-06] MEDS: RANITIDINE HCL 150 MG TABLET (FP) PO SCH ×2 (10:44→22:00)
[2017-09-06] MEDS: PRENATAL VITAMINS W/ FOLIC ACID TABLET (FP) PO SCH (10:44)
[2017-09-06] MEDS: CITALOPRAM HYDROBROMIDE 20 MG TABLET (FP) PO SCH (10:44)
[2017-09-06] MEDS: ASPIRIN COATED 81 MG TABLET.EC PO SCH (10:44)
[2017-09-06] MEDS: BACITRACIN 0.9 GM PACKET TP SCH ×4 (10:45→22:00)
[2017-09-06] MEDS: DOCUSATE SODIUM 100 MG CAPSULE (FP) PO SCH ×2 (12:46→22:02)
[2017-09-06] MEDS ORDERED: PT OWN MED DRAWER 7, Y5N ONE (20:00)
[2017-09-06] MEDS: ATORVASTATIN CA 10 MG TABLET (FP) PO SCH (22:00)
[2017-09-06] MEDS: traZODone HCL 100 MG TABLET (FP) PO SCH (22:00)
[2017-09-06] MEDS: THIAMINE HCL 100 MG TABLET (FP) PO SCH (22:00)
[2017-09-06] MEDS: diphenhydrAMINE HCL 50 MG CAPSULE PO SCH (22:00)
[2017-09-06] MEDS: MIRTAZAPINE 15 MG TABLET (FP) PO SCH (22:00)
[2017-09-07] MEDS ORDERED: PT OWN MED DRAWER 7, Y5N ONE (09:02)
[2017-09-07] MEDS: TRIAMCINOLONE ACET 0.1% OINT 15 GM TUBE TP SCH ×2 (10:33→21:46)
[2017-09-07] MEDS: BACITRACIN 0.9 GM PACKET TP SCH ×4 (10:33→21:50)
[2017-09-07] MEDS: ASPIRIN COATED 81 MG TABLET.EC PO SCH (10:33)
[2017-09-07] MEDS: DOCUSATE SODIUM 100 MG CAPSULE (FP) PO SCH ×2 (10:33→21:49)
[2017-09-07] MEDS: CITALOPRAM HYDROBROMIDE 20 MG TABLET (FP) PO SCH (10:33)
[2017-09-07] MEDS: RANITIDINE HCL 150 MG TABLET (FP) PO SCH ×2 (10:33→21:49)
[2017-09-07] MEDS: PRENATAL VITAMINS W/ FOLIC ACID TABLET (FP) PO SCH (10:34)
[2017-09-07] MEDS: diphenhydrAMINE HCL 50 MG CAPSULE PO SCH (21:49)
[2017-09-07] MEDS: ATORVASTATIN CA 10 MG TABLET (FP) PO SCH (21:49)
[2017-09-07] MEDS: MIRTAZAPINE 15 MG TABLET (FP) PO SCH (21:49)
[2017-09-07] MEDS: traZODone HCL 100 MG TABLET (FP) PO SCH (21:49)
[2017-09-07] MEDS: THIAMINE HCL 100 MG TABLET (FP) PO SCH (21:49)
[2017-09-08 07:26] VITALS: TEMP 98.1
[2017-09-08] MEDS: PRENATAL VITAMINS W/ FOLIC ACID TABLET (FP) PO SCH (10:10)
[2017-09-08] MEDS: BACITRACIN 0.9 GM PACKET TP SCH ×4 (10:11→21:41)
[2017-09-08] MEDS: DOCUSATE SODIUM 100 MG CAPSULE (FP) PO SCH ×2 (10:11→21:39)
[2017-09-08] MEDS: RANITIDINE HCL 150 MG TABLET (FP) PO SCH ×2 (10:11→21:40)
[2017-09-08] MEDS: CITALOPRAM HYDROBROMIDE 20 MG TABLET (FP) PO SCH (10:11)
[2017-09-08] MEDS: ASPIRIN COATED 81 MG TABLET.EC PO SCH (10:11)
[2017-09-08] MEDS: TRIAMCINOLONE ACET 0.1% OINT 15 GM TUBE TP SCH ×2 (10:12→21:41)
[2017-09-08] MEDS: THIAMINE HCL 100 MG TABLET (FP) PO SCH (21:39)
[2017-09-08] MEDS: MIRTAZAPINE 15 MG TABLET (FP) PO SCH (21:40)
[2017-09-08] MEDS: traZODone HCL 100 MG TABLET (FP) PO SCH (21:40)
[2017-09-08] MEDS: ATORVASTATIN CA 10 MG TABLET (FP) PO SCH (21:40)
[2017-09-08] MEDS: diphenhydrAMINE HCL 50 MG CAPSULE PO SCH (21:40)
[2017-09-09 07:35] VITALS: PULSE 85
--- NOTE | 2017-09-09 09:04 | PN ---
Psychiatric Progress Note Vital Signs: Vital Signs Period Temp Pulse Resp BP Sys/Lang Pulse Ox Last 24 Hr 98.1 F 85-99 18-18 125-138/86-89 Date of Session: 09/09/17 Chief Complaint:: Discharge visit HPI: Alcohol dependence and Cocaine dependence comorbid with Substance induced mood dsiorder. ROS: Significant for HTN,Hyperlipidemia,GERD. Current Medications: Active Medications Generic Name Dose Route Start Last Admin Trade Name Freq PRN Reason Stop Dose Admin Acetaminophen 650 mg 08/12/17 15:24 Tylenol - PO Q4H PRN PAIN Al Hydroxide/Mg Hydroxide 30 ml 08/12/17 15:24 Mylanta Oral Suspension - PO Q6H PRN DYSPEPSIA Aspirin 81 mg 08/13/17 10:00 09/08/17 10:11 Ecotrin - PO 81 mg DAILY REENA Administration Atorvastatin Calcium 10 mg 08/12/17 22:00 09/08/17 21:40 Lipitor - PO 10 mg HS REENA Administration Bacitracin 0.9 gm 08/21/17 18:00 09/08/17 21:41 Bacitracin - TP Not Given QID REENA Citalopram Hydrobromide 40 mg 08/13/17 10:00 09/08/17 10:11 Celexa - PO 40 mg DAILY REENA Administration Colloidal Oatmeal 1 applic 08/22/17 13:22 09/01/17 17:30 Aveeno Soap - TP 1 bar DAILY PRN Administration HYGEINE Diphenhydramine HCl 50 mg 08/27/17 22:00 09/08/17 21:40 Benadryl - PO 50 mg HS REENA Administration Docusate Sodium 100 mg 09/06/17 11:30 09/08/17 21:39 Colace - PO 100 mg BID REENA Administration Eucalyptus/Menthol/Phenol/Sorbitol 1 each 08/12/17 15:24 Cepastat Lozenge - MM Q4H PRN SORE THROAT Guaifenesin 10 ml 08/12/17 15:24 Robitussin Dm - PO Q6H PRN COUGH Hydroxyzine Pamoate 50 mg 08/12/17 15:24 Vistaril - PO Q4H PRN AGITATION Ibuprofen 400 mg 08/12/17 15:24 Motrin - PO Q6H PRN SEVERE PAIN Loperamide HCl 4 mg 08/12/17 15:24 08/13/17 07:14 Imodium - PO 4 mg Q6H PRN Administration DIARRHEA Magnesium Citrate 300 ml 08/12/17 15:24 Citroma - PO Q48H PRN CONSTIPATION Magnesium Hydroxide 30 ml 08/12/17 15:24 Milk Of Magnesia - PO DAILY PRN CONSTIPATION Mirtazapine 15 mg 08/12/17 22:00 09/08/17 21:40 Remeron - PO 15 mg HS REENA Administration Ondansetron HCl 4 mg 08/14/17 09:11 08/14/17 09:36 Zofran Odt - SL 4 mg Q6H PRN Administration NAUSEA AND/OR VOMITING Multivit/Folic Acid/Iron 1 tab 08/13/17 10:00 09/08/17 10:10 Vitamins (Sjr) - PO 1 tab DAILY REENA Administration Pseudoephedrine/Triprolidine 1 combo 08/12/17 15:24 Actifed - PO TID PRN NASAL CONGESTION Ranitidine HCl 150 mg 08/12/17 22:00 09/08/17 21:40 Zantac - PO 150 mg BID REENA Administration Thiamine HCl 100 mg 08/12/17 22:00 09/08/17 21:39 Vitamin B1 - PO 100 mg HS REENA Administration Trazodone HCl 200 mg 08/12/17 22:00 09/08/17 21:40 Desyrel - PO 200 mg HS REENA Administration Triamcinolone Acetonide 1 applic 08/12/17 22:00 09/08/17 21:41 Aristocort 0.1% Ointment - TP Not Given BID REENA Current Side Effect: No Lab tests ordered: No Lab tests reviewed: Yes Provider note:: Patient succesfully completed this program today.She has met her treatment goals and will continue to address her issues on outpatient basis at [facility] in the [place].Patient reports finding that Celexa 40 mg po dilay,Trazodone 200 mg po hs and Remeron 15 mg po hs help to cope with depression,mood instability,insomnia.Scripts for 30 days provided. Supportive therapy provided focusing on relapse prevention has been provided. Patient is stable for discharge today. Total face to face time:: 30 Mental Status Exam - Mental Status Exam Alert and Oriented to: Time, Place, Person Cognitive Function: Grossly Intact Patient Appearance: Well Groomed Mood: Hopeful, Euthymic Affect: Appropriate, Mood Congruent Patient Behavior: Cooperative Speech Pattern: Clear Voice Loudness: Normal Thought Process: Goal Oriented Thought Disorder: Not Present Hallucinations: Denies Suicidal Ideation: Denies Homicidal Ideation: Denies Insight/Judgement: Fair Sleep: Fair Appetite: Good Muscle strength/Tone: Normal Gait/Station: Normal Psychiatric Treatment Plan - Problem List (1) Cocaine dependence Current Visit: Yes (2) Psychoactive substance-induced mood disorder Current Visit: Yes (3) GERD (gastroesophageal reflux disease) Current Visit: Yes Qualifiers: Esophagitis presence: without esophagitis Qualified Code(s): K21.9 - Gastro-esophageal reflux disease without esophagitis; K21.9 - Gastro- esophageal reflux disease without esophagitis; K21.9 - Gastro-esophageal reflux disease without esophagitis (4) HTN (hypertension) Current Visit: Yes Qualifiers: Hypertension type: essential hypertension Qualified Code(s): I10 - Essential (primary) hypertension; I10 - Essential (primary) hypertension; I10 - Essential (primary) hypertension (5) Hypercholesterolemia Current Visit: Yes (6) Alcohol dependence in controlled environment Current Visit: Yes
[2017-09-09 09:28] VITALS: BP 122/80
[2017-09-09] MEDS: TRIAMCINOLONE ACET 0.1% OINT 15 GM TUBE TP SCH (09:29)
[2017-09-09] MEDS: CITALOPRAM HYDROBROMIDE 20 MG TABLET (FP) PO SCH (09:29)
[2017-09-09] MEDS: PRENATAL VITAMINS W/ FOLIC ACID TABLET (FP) PO SCH (09:30)
[2017-09-09] MEDS: RANITIDINE HCL 150 MG TABLET (FP) PO SCH (09:30)
[2017-09-09] MEDS: ASPIRIN COATED 81 MG TABLET.EC PO SCH (09:30)
[2017-09-09] MEDS: DOCUSATE SODIUM 100 MG CAPSULE (FP) PO SCH (09:30)
[2017-09-09] MEDS: BACITRACIN 0.9 GM PACKET TP SCH (10:20)
[2017-09-09] MEDS ORDERED: PT OWN MED DRAWER 7, Y5N ONE (10:27)
== END 2017-09-09 10:21 | disposition home or self-care (01) | DRG 895 ==
LOC: YASAS 12:41 → Y3E 16:00
PROVIDERS: ADMIT Psychiatry & Neurology Psychiatry; ATTEND Psychiatry & Neurology Psychiatry
PROC: HZ42ZZZ Group Counseling for Substance Abuse Treatment, Cognitive-Behavioral (ICD-10-PCS; principal; 2017-08-12)
DX: F10.20 Alcohol dependence, uncomplicated (principal); F14.20 Cocaine dependence, uncomplicated; L02.415 Cutaneous abscess of right lower limb; F19.24 Other psychoactive substance dependence with psychoactive substance-induced mood disorder; I10 Essential (primary) hypertension; E78.00 Pure hypercholesterolemia, unspecified; K21.9 Gastro-esophageal reflux disease without esophagitis; Z88.2 Allergy status to sulfonamides; Z88.6 Allergy status to analgesic agent; Z88.1 Allergy status to other antibiotic agents; Z86.79 Personal history of other diseases of the circulatory system; Z87.891 Personal history of nicotine dependence
CPT/HCPCS: 36415; 80053; 81003; 81015; 85027; 86593; 87389; 93005; 93010